=== PATIENT | female | born 1980 | race Caucasian/White ===

== ENCOUNTER 2017-04-14 00:50 | Inpatient (IN) | payer OTHER ==
[2017-04-14 01:35] LABS: BASOPHIL 0.9 % (0-2.0); MCH 28.2 pg (25.7-33.7); MCHC 33.8 g/dl (32.0-36.0); MEAN CELL VOLUME 83.5 fl (80-96); MEAN PLT VOLUME 9.3 fl (7.5-11.1); NEUTROPHILS 67.6 % (42.8-82.8); PLATELET COUNT 218 K/MM3 (134-434); RDW 14.4 % (11.6-15.6); WHITE BLOOD COUNT 6.4 K/mm3 (4.0-10.0)
[2017-04-14 01:41] VITALS: BMI 34.7
[2017-04-14 01:52] LABS: INR 0.93 (0.82-1.09); PROTHROMBIN TIME (PATIENT) 10.5 SEC (9.98-11.88)
[2017-04-14 02:00] LABS: ANION GAP 13 (8-16); CALCIUM 8.4 mg/dL (8.5-10.1); CO2 20 mmol/L (21-32); CREATININE 0.6 mg/dL (0.55-1.02); GLUCOSE,RANDOM 91 mg/dL (74-106)
[2017-04-14] MEDS ORDERED: IBUPROFEN 800 MG/8 ML IJ IVPB PRN (03:10)
[2017-04-14] MEDS ORDERED: ONDANSETRON 4 MG/2 ML VIAL IVPUSH PRN (03:11)
[2017-04-14] MEDS ORDERED: CITRIC ACID/SODIUM CITRATE 30 ML UNIT-DOSE CUP PO ONE ×2 (03:13)
[2017-04-14] MEDS ORDERED: ELECTROLYTE-148 SOLN 1,000 ML IV SCH (03:15)
--- NOTE | 2017-04-14 03:20 | HP ---
Past Medical History - Admission Chief Complaint: Rupture of membrane History of Present Illness: 36 yo @ 34 weeks gestation, EDC 05/21/17, with 2 previous C-Sections, admitted for rupture of membrane. Patient was then prepped and draped for repeat . History Source: Patient Limitations to Obtaining History: No Limitations - Past Medical History ...: 3 ...Para: 2 ...Term: 1 ...: 1 ...Spon : 0 ...Induced : 0 ...Multiple Gestation: 0 ...LMP: 08/18/16 ... Weeks Gestation by Dates: 34.1 ...EDC by Dates: 05/25/17 ...EDC by Sono: 05/21/17 - Past Surgical History Past Surgical History: Yes: Hx Myomectomy: No Hx Transabdominal Cerclage: No - Smoking History Smoking history: Never smoked Have you smoked in the past 12 months: No - Alcohol/Substance Use Hx Alcohol Use: No History of Substance Use: reports: None - Social History Usual Living Arrangement: Yes: With Spouse History of Recent Travel: No Home Medications - Allergies Allergies/Adverse Reactions: Allergies Allergy/AdvReac Type Severity Reaction Status Date / Time No Known Allergies Allergy Verified 04/14/17 01:21 - Home Medications Home Medications: Ambulatory Orders Vit/Iron Fumarate/FA [ Tablet] 1 tablet PO DAILY 04/14/17 Family Disease History - Family Disease History Family History: Unremarkable Review of Systems - Review of Systems Constitutional: reports: No Symptoms Eyes: reports: No Symptoms HENT: reports: No Symptoms Neck: reports: No Symptoms Cardiovascular: reports: No Symptoms Respiratory: reports: No Symptoms Gastrointestinal: reports: No Symptoms Genitourinary: reports: Other (Rupture of membrane) Breasts: reports: No Symptoms Reported Musculoskeletal: reports: No Symptoms Integumentary: reports: No Symptoms Neurological: reports: No Symptoms Endocrine: reports: No Symptoms Hematology/Lymphatic: reports: No Symptoms Psychiatric: reports: No Symptoms Pain Intensity: 3 Physical Exam - Maternity Vital Signs: Vital Signs Temperature 97.3 F L 04/14/17 00:50 Pulse Rate 75 04/14/17 00:50 Respiratory Rate 20 04/14/17 00:50 Blood Pressure 139/72 04/14/17 00:50 O2 Sat by Pulse Oximetry (%) Constitutional: Yes: Well Nourished HENT: Yes: Atraumatic Neck: Yes: Supple Cardiovascular: Yes: Regular Rate and Rhythm Lungs: Clear to auscultation Breast(s): Yes: WNL - Abdominal Exam/OB Number of Fetuses: Single Presentation: Breech Contractions: No Intensity: Mild - Vaginal Exam/OB Amniotic Membrane Status: Ruptured Amniotic Fluid: Yes: Clear Presentation: Calderon Breech - Physical Exam Musculoskeletal: Yes: WNL Extremities: Yes: WNL ...Motor Strength: WNL Psychiatric: Yes: Alert, Oriented - Labs Lab Results: CBC, BMP 04/14/17 01:25 04/14/17 01:25 Problem List - Problems (1) premature rupture of membranes (PPROM) delivered, current hospitalization Code(s): O42.919 - PRETRM DIA ROM, UNSP TIME BETW RUPT AND ONST LABR, UNSP TRI (2) Previous section complicating , antepartum condition or complication Code(s): O34.219 - MATERNAL CARE FOR UNSP TYPE SCAR FROM PREVIOUS DEL Assessment/Plan IUP @ 34 weeks PPROM Previous Pre op for repeat Consent signed Anesthesia to see patient
[2017-04-14] MEDS ORDERED: METHYLERGONOVINE MALEATE 0.2 MG/1 ML AMP IM PRN (03:25)
--- NOTE | 2017-04-14 03:25 | OP ---
Operative Note - Note: Operative Date: 04/14/17 Pre-Operative Diagnosis: Premature rupture of membrane/ Previous C- Section Operation: Repeat Low Transverse Findings: Baby boy in Calderon breech position Post-Operative Diagnosis: Same as Pre-op Surgeon: Lorrie Diallo Senior Medical Transcriptionist: Sarmad Urias Specimens Removed: Placenta Estimated Blood Loss (mls): 600 Operative Report Dictated: Yes
[2017-04-14] MEDS ORDERED: OXYTOCIN 20 UNITS in 0.9% NS 1,000 ML IV SCH (03:30)
[2017-04-14 03:36] LABS: HIV 1 & 2 AB NEGATIVE; HIV 1 AGp24 NEGATIVE
[2017-04-14 03:41] LABS: ARTERIAL BLD GAS O2 SATURATION 44.7 % (90-98.9); ARTERIAL BLOOD GAS HCO3 23.3 meq/L (22-26); ARTERIAL BLOOD GAS pH 7.35 (7.35-7.45)
[2017-04-14 03:45] LABS: PT. ON O2? NO
[2017-04-14 03:47] LABS: ARTERIAL BLOOD GAS PO2 22.8 mmHg (80-100)
[2017-04-14 03:48] LABS: VENOUS BLOOD GAS HCO3 23.5 meq/L (19-25); VENOUS PH 7.34 (7.32-7.42)
[2017-04-14] MEDS: PRENATAL VITAMINS W/ FOLIC ACID TABLET (FP) PO SCH (12:27)
[2017-04-14] MEDS: FERROUS SO4 325 MG TABLET (FP) PO SCH ×2 (12:27→21:28)
[2017-04-15] MEDS ORDERED: BISACODYL 10 MG SUPP.RECT RC PRN (03:25)
--- NOTE | 2017-04-15 08:14 | PN ---
Post Progress Note Post Day: 1 Type of Delivery: Repeat C/S Vital Signs: Vital Signs Temperature 98 F 04/15/17 02:00 Pulse Rate 86 04/15/17 02:00 Respiratory Rate 18 04/15/17 02:00 Blood Pressure 121/78 04/15/17 02:00 O2 Sat by Pulse Oximetry (%) 99 04/14/17 04:15 Breast Exam: Yes: Soft Uterus: Yes: Fundus Firm Incision: Yes: Dressing dry and intact Abdomen/GI: Yes: Abdomen soft Lochia: Yes: Rubra Lochia, amount: Small Extremities: Yes: Calves non-tender Perineum: Yes: Intact Activity: Ambulating - Labs Labs: CBC WBC 6.4 K/mm3 (4.0-10.0) 04/14/17 01:25 RBC 4.09 M/mm3 (3.60-5.2) 04/14/17 01:25 Hgb 11.5 GM/dL (10.7-15.3) 04/14/17 01:25 Hct 34.2 % (32.4-45.2) 04/14/17 01:25 MCV 83.5 fl (80-96) 04/14/17 01:25 MCH 28.2 pg (25.7-33.7) 04/14/17 01:25 MCHC 33.8 g/dl (32.0-36.0) 04/14/17 01:25 RDW 14.4 % (11.6-15.6) 04/14/17 01:25 Plt Count 218 K/MM3 (134-434) 04/14/17 01:25 MPV 9.3 fl (7.5-11.1) 04/14/17 01:25 Neutrophils % 67.6 % (42.8-82.8) 04/14/17 01:25 Lymphocytes % 23.5 % (8-40) 04/14/17 01:25 Monocytes % 7.0 % (3.8-10.2) 04/14/17 01:25 Eosinophils % 1.0 % (0-4.5) 04/14/17 01:25 Basophils % 0.9 % (0-2.0) 04/14/17 01:25 Assessment/Plan check cbc reg diet oob
[2017-04-15 08:21] LABS: BASOPHIL 0.2 % (0-2.0); EOSINOPHIL 1.5 % (0-4.5); MCHC 33.6 g/dl (32.0-36.0); MEAN CELL VOLUME 83.3 fl (80-96); MEAN PLT VOLUME 8.4 fl (7.5-11.1); NEUTROPHILS 84.5 % (42.8-82.8); PLATELET COUNT 197 K/MM3 (134-434); RDW 14.6 % (11.6-15.6); WHITE BLOOD COUNT 9.7 K/mm3 (4.0-10.0)
[2017-04-15] MEDS: SIMETHICONE 80 MG TAB.CHEW (FP) PO PRN ×2 (09:02→20:16)
[2017-04-15] MEDS: IBUPROFEN 600 MG TABLET (FP) PO PRN ×2 (09:02→20:18)
[2017-04-15] MEDS: oxyCODONE HCL 5 MG TABLET PO PRN ×2 (09:03→20:16)
[2017-04-15] MEDS ORDERED: DIPHTH,PERTUSS(ACELL),TET 0.5 ML DISP.SYRIN IM ONE (10:00)
[2017-04-15] MEDS: PRENATAL VITAMINS W/ FOLIC ACID TABLET (FP) PO SCH (10:29)
[2017-04-15] MEDS: FERROUS SO4 325 MG TABLET (FP) PO SCH ×2 (10:29→22:48)
--- NOTE | 2017-04-15 15:20 | PN ---
Progress Note, Physician Chief Complaint: s/p c section under spinal anesthesia History of Present Illness: post op day one with duramorph for post op pain control - Current Medication List Current Medications: Active Medications Bisacodyl (Dulcolax Suppository -) 10 mg RC PRN PRN PRN Reason: CONSTIPATION Diphenhydramine HCl (Benadryl Injection -) 25 mg IVPUSH Q4H PRN PRN Reason: itching Ferrous Sulfate (Feosol -) 325 mg PO BID [facility] Last Admin: 04/15/17 10:29 Dose: 325 mg Parenteral Electrolytes (Plasma-Lyte 148 -) 1,000 mls @ 125 mls/hr IV ASDIR BATSHEVA Oxytocin/Sodium Chloride (Normal Saline+20 Units Oxytocin -) 1,000 mls @ 125 mls/hr IV ASDIR BATSHEVA Ibuprofen (Motrin -) 600 mg PO Q4H PRN PRN Reason: PAIN Last Admin: 04/15/17 09:02 Dose: 600 mg Methylergonovine Maleate (Methergine Injection -) 0.2 mg IM Q4H PRN PRN Reason: Excessive Bleeding (L&D) Last Admin: 04/14/17 11:15 Dose: 0.2 mg Oxycodone HCl (Roxicodone -) 5 mg PO Q4H PRN PRN Reason: PAIN LEVEL 1-5 Last Admin: 04/15/17 09:03 Dose: 5 mg Multivit/Folic Acid/Iron ( Vitamins (Sjr) -) 1 tab PO DAILY BATSHEVA Last Admin: 04/15/17 10:29 Dose: 1 tab Simethicone (Mylicon -) 80 mg PO Q4H PRN PRN Reason: GAS Last Admin: 04/15/17 09:02 Dose: 80 mg - Objective Vital Signs: Vital Signs Temperature 98 F 04/15/17 13:09 Pulse Rate 94 H 04/15/17 13:09 Respiratory Rate 22 04/15/17 13:09 Blood Pressure 134/74 04/15/17 13:09 O2 Sat by Pulse Oximetry (%) 99 04/14/17 04:15 Constitutional: Yes: Well Nourished Cardiovascular: Yes: WNL Respiratory: Yes: WNL Gastrointestinal: Yes: WNL Neurological: Yes: WNL Labs: CBC, BMP 04/15/17 07:45 04/14/17 01:25 INR, PTT INR 0.93 (0.82-1.09) 04/14/17 01:25 Assessment/Plan No adverse effect from anesthetic, no headache, pain controlled. Dept of anesthesiology will sign off care at this time
[2017-04-16] MEDS: IBUPROFEN 600 MG TABLET (FP) PO PRN ×3 (04:54→18:24)
[2017-04-16] MEDS: SIMETHICONE 80 MG TAB.CHEW (FP) PO PRN ×3 (04:54→18:25)
[2017-04-16] MEDS: oxyCODONE HCL 5 MG TABLET PO PRN ×3 (04:55→18:23)
[2017-04-16] MEDS: FERROUS SO4 325 MG TABLET (FP) PO SCH ×2 (09:26→21:30)
[2017-04-16] MEDS: PRENATAL VITAMINS W/ FOLIC ACID TABLET (FP) PO SCH (09:26)
--- NOTE | 2017-04-16 13:42 | PATH ---
Surgical Pathology Report Patient Name: DAVID CLEMONS Med. Rec. #: [id number] /Age/Gender: 1980 (Age: 36) / F Account: [id number] Location: [facility] OBS/MINK SLICER Taken: 04/14/2017 Received: 04/14/2017 Reported: 04/16/2017 Physicians: Lorrie Diallo M.D. Specimen(s) Received PLACENTA Clinical History 36-year-old female, 34.5 weeks with premature rupture of membranes 2 previous C-sections Final Diagnosis PLACENTA, DELIVERY: FOCALLY DISRUPTED THIRD TRIMESTER PLACENTA WITH THREE VESSEL UMBILICAL CORD AND UNREMARKABLE PLACENTAL MEMBRANES. Electronically Signed Slade Lu M.D. Gross Description The specimen is received fresh labeled placenta and is a 440 gram, 16.0 x 15.0 x 3.0 cm. placenta with attached membranes and umbilical cord. The attached membranes are rivera, translucent with focal opacities and insert marginally. The umbilical cord measures 17 cm. in length and averages 1.2 cm. in diameter. The cord inserts eccentrically, 3 cm. to the nearest margin. No true knots or strictures are identified. Cut surface of the umbilical cord reveals 3 vessels. The surface is yadav-blue with minimal fibrin deposition and appropriate caliber vessels. The maternal surface is red-brown with focal defects. Sectioning reveals red-brown, spongy parenchyma. No lesions are identified. Video Photographer sections are submitted in three cassettes as follows: 1- membrane rolls and umbilical cord; 2-3- full thickness sections of placenta. 04/15/2017 saudi04/15/2017
--- NOTE | 2017-04-16 17:11 | PN ---
Progress Note (short form) - Note Progress Note: pod 2 s/p c/s doing well, no c/o CBC, BMP 04/15/17 07:45 04/14/17 01:25 Last Vital Signs Temp Pulse Resp BP Pulse Ox 98.8 F 72 20 122/71 99 04/16/17 07:40 04/16/17 07:40 04/16/17 07:40 04/16/17 07:40 04/14/17 04:15 abdomen soft, no distension, no cav incision dry, clean no calf tenderness plan ambulate , cbc in am
[2017-04-17] MEDS: oxyCODONE HCL 5 MG TABLET PO PRN (02:22)
[2017-04-17] MEDS: SIMETHICONE 80 MG TAB.CHEW (FP) PO PRN ×4 (02:22→22:16)
[2017-04-17] MEDS: IBUPROFEN 600 MG TABLET (FP) PO PRN ×4 (02:22→22:16)
[2017-04-17 08:27] LABS: BASOPHIL 0.1 % (0-2.0); EOSINOPHIL 4.6 % (0-4.5); MCH 28.5 pg (25.7-33.7); MCHC 33.7 g/dl (32.0-36.0); MEAN CELL VOLUME 84.3 fl (80-96); MEAN PLT VOLUME 8.7 fl (7.5-11.1); NEUTROPHILS 77.6 % (42.8-82.8); PLATELET COUNT 220 K/MM3 (134-434); RDW 14.9 % (11.6-15.6)
--- NOTE | 2017-04-17 08:38 | PN ---
Progress Note (short form) - Note Progress Note: pod 3 s/p c/s doing well CBC, BMP 04/17/17 07:00 04/14/17 01:25 Last Vital Signs Temp Pulse Resp BP Pulse Ox 98.9 F 72 18 113/71 99 04/17/17 08:03 04/17/17 08:03 04/17/17 08:03 04/17/17 08:03 04/14/17 04:15 abdomen soft, incision dry, clean no calf tenderness plan ambualte , pain management, d/c home in am
[2017-04-17] MEDS: FERROUS SO4 325 MG TABLET (FP) PO SCH ×2 (09:27→22:16)
[2017-04-17] MEDS: PRENATAL VITAMINS W/ FOLIC ACID TABLET (FP) PO SCH (09:27)
--- NOTE | 2017-04-18 09:16 | DS ---
Physical Exam-YARD COORDINATOR Vital Signs: Vital Signs Temperature 98.7 F 04/18/17 06:55 Pulse Rate 76 04/18/17 06:55 Respiratory Rate 20 04/18/17 06:55 Blood Pressure 126/76 04/18/17 06:55 O2 Sat by Pulse Oximetry (%) 99 04/14/17 04:15 Constitutional: Yes: Well Nourished, No Distress, Calm Eyes: Yes: WNL, Conjunctiva Clear, EOM Intact HENT: Yes: WNL, Atraumatic, Normocephalic Neck: Yes: WNL, Supple, Trachea Midline Cardiovascular: Yes: WNL, Regular Rate and Rhythm Respiratory: Yes: WNL, Regular, CTA Bilaterally Gastrointestinal: Yes: WNL ...Rectal Exam: Yes: WNL Renal/: Yes: WNL ....Post : Yes: Uterus firm, Uterus non-tender, Slight lochia rubra Breast(s): Yes: WNL Musculoskeletal: Yes: WNL Extremities: Yes: WNL Edema: No Integumentary: Yes: WNL Wound/Incision: Yes: Clean/Dry, Well Approximated, [place] Intact Neurological: Yes: WNL, Alert, Oriented ...Motor Strength: WNL Psychiatric: Yes: WNL, Alert, Oriented Labs: CBC, BMP 04/17/17 07:00 04/14/17 01:25 Delivery - Delivery Section: Repeat, Low Flap Transverse Type of Anesthesia: Spinal Episiotomy/Laceration: None EBL (cc): 500 Delivery, Single - Stages of Labor Date 1st Stage Initiatied: 04/14/17 Time 1st Stage Initiated: 00:30 Date of Delivery: 04/14/17 Time of Delivery: 02:38 Time Placenta Delivered: 02:39 Placenta: Yes: Expressed - Condition of Infant Ager Operator/Crib Clerk Present: Yes Name: Neena Camacho Infant Gender: Male Weight: 6 lb 10 oz Total Hours ROM (Hrs/Mins): 2 HOURS/8 MINUTES - 1 Minute Total Score: 8 5 Minutes Total Score: 9 - Feeding Plan Initial Plan: Elected not to breastfeed exclusively throughout hospitalization Discharge Summary Reason For Visit: ADMIT Current Active Problems premature rupture of membranes (PPROM) delivered, current hospitalization (Acute) Previous section complicating , antepartum condition or complication (Acute) Procedures: Principal: repeat LST c/s - Instructions Referrals: [facility] ([facility] [Outside] - Home Medications Comprehensive Discharge Medication List: Ambulatory Orders Vit/Iron Fumarate/FA [ Tablet] 1 tablet PO DAILY 04/14/17 Ibuprofen [Motrin -] 600 mg PO QID #28 tablet 04/18/17
[2017-04-18 09:49] VITALS: BP 127/75; PULSE 82; TEMP 98.8
[2017-04-18] MEDS: FERROUS SO4 325 MG TABLET (FP) PO SCH (10:00)
[2017-04-18] MEDS: PRENATAL VITAMINS W/ FOLIC ACID TABLET (FP) PO SCH (10:00)
[2017-04-18] MEDS: IBUPROFEN 600 MG TABLET (FP) PO PRN (11:09)
== END 2017-04-18 11:51 | disposition home or self-care (01) | DRG 540 ==
LOC: JLDR 00:50 → J3W 05:30
PROVIDERS: ADMIT Obstetrics & Gynecology; ATTEND Obstetrics & Gynecology
PROC: 10D00Z1 Extraction of Products of Conception, Low, Open Approach (ICD-10-PCS; principal; 2017-04-14)
DX: O42.913 Preterm premature rupture of membranes, unspecified as to length of time between rupture and onset of labor, third trimester (principal); O34.211 Maternal care for low transverse scar from previous cesarean delivery; Z3A.34 34 weeks gestation of pregnancy; N85.8 Other specified noninflammatory disorders of uterus; Z37.0 Single live birth
CPT/HCPCS: 36415; 36600; 80048; 82803; 85025; 85610; 85730; 86593; 86850; 86900; 86901; 87389; 88307-TC; 90715

== ENCOUNTER 2020-03-02 16:17 | Emergency (ER) | payer OTHER ==
[2020-03-02 16:46] VITALS: BP 132/91; PULSE 82; TEMP 98.3; BMI 30.2
--- NOTE | 2020-03-02 17:39 | PDOC ---
History of Present Illness - General Chief Complaint: Laceration Stated Complaint: LACERATION TO RIGHT HAND Time Seen by Provider: 03/02/20 16:46 History Source: Patient - History of Present Illness Timing/Duration: reports: this afternoon Location: reports: hands Past History - Medical History Allergies/Adverse Reactions: Allergies Allergy/AdvReac Type Severity Reaction Status Date / Time No Known Allergies Allergy Verified 04/14/17 01:21 Home Medications: Ambulatory Orders Vit/Iron Fum/Folic AC [ Tablet] 1 tablet PO DAILY 04/14/17 Ibuprofen [Motrin -] 600 mg PO QID #28 tablet 04/18/17 Asthma: No Cancer: No Cardiac Disorders: No COPD: No Diabetes: No HTN: No Seizures: No Thyroid Disease: No - Reproductive History Is Patient Now?: No - Immunization History Immunization Up to Date: No - Psycho-Social/Smoking History Smoking History: Never smoked Have you smoked in the past 12 months: No - Substance Abuse Hx (Audit-C & DAST Scrn) How often the patient has a drink containing alcohol: Never Score: In Men: 4 or > Positive; In Women: 3 or > Positive: 0 Screen Result (Pos requires Nsg. Audit-10AR): Negative In the last yr the pt used illegal drug/Rx for NonMed reason: No Score: Yes response is considered Positive: 0 Screen Result (Positive result requires Nsg. DAST-10): Negative Review of Systems - Review of Systems Neurological: No: Numbness *Physical Exam - Vital Signs Last Vital Signs Temp Pulse Resp BP Pulse Ox 98.3 F 82 20 132/91 100 03/02/20 16:36 03/02/20 16:36 03/02/20 16:36 03/02/20 16:36 03/02/20 16:36 - Physical Exam General Appearance: Yes: Appropriately Dressed, Mild Distress HEENT: positive: Normal Voice Neck: positive: Supple Respiratory/Chest: negative: Respiratory Distress Integumentary: positive: Dry, Warm, Other (~1.5 cm curvilinear, superficial lac to dorsum of proximal phalanx of R thunb, no gross tendon, FROMI, sensation intact) Neurologic: positive: Fully Oriented, Alert, Normal Mood/Affect Procedures - Laceration/Wound Repair Right Finger Wound Length: to 2.5 cm Wound Explored: clean Wound's Depth, Shape: superficial Anesthesia: 1% Lidocaine Amount of Anesthetic (ccs): 7 Wound Repaired With: Sutures Suture Size/Type: 4:0, nylon Number of Sutures: 12 Sterile Dressing Applied: Yes Medical Decision Making - Medical Decision Making 03/02/20 17:40 39 yo F, p/w lac to R thumb while handling broken dishes today. Tetanus UTD see exam Lac repair to thumb No e/o tendon injury Tetanus UTD Lac repair Wound check as needed in 2 days Discharge - Discharge Information Problems reviewed: Yes Clinical Impression/Diagnosis: Laceration of thumb Qualifiers: Encounter type: initial encounter Damage to nail status: without damage Foreign body presence: without foreign body Laterality: right Qualified Code(s): S61.011A - Laceration without foreign body of right thumb without damage to nail, initial encounter Condition: Good Disposition: HOME - Follow up/Referral - Patient Discharge Instructions Patient Printed Discharge Instructions: DI for Laceration Repair Additional Instructions: Mantenga el apsito en amado lugar juliana al menos 24 horas, despus de lo cual se puede abrir al aire. Puede limpiar suavemente la herida con agua y jabn suave despus de 24 horas para evitar la formacin de costras sobre los nudos de sutura. Renzobin puede aplicar drea pomada antibitica dos veces al da hasta que se retiren las suturas. Regreso por enrojecimiento, secrecin o fiebre Las suturas se retiran en 7 gold. Print Language: JAPANESE - Post Discharge Activity
== END 2020-03-02 17:58 | disposition home or self-care (01) ==
LOC: JER 16:17 → JERFT 16:17
PROC: 0HQFXZZ Repair Right Hand Skin, External Approach (ICD-10-PCS; principal; 2020-03-02)
DX: S61.011A Laceration without foreign body of right thumb without damage to nail, initial encounter (principal)
CPT/HCPCS: 99282-25

== ENCOUNTER 2020-03-09 17:24 | Emergency (ER) | payer OTHER ==
[2020-03-09 17:41] VITALS: BP 130/84; PULSE 71; TEMP 97.9; BMI 30.6
--- NOTE | 2020-03-09 18:34 | PDOC ---
Suture Removal/Wound Check HPI - History of Present Illness Chief Complaint: Suture/Staple Removal(Here) Stated Complaint: SUTURE REMOVAL Time Seen by Provider: 03/09/20 17:51 History Source: Yes: Patient Treated at: [facility] Date of Last ED visit: 03/02/20 - Previous ED Treatment Type of procedure performed on last visit: Yes: Laceration Repair Tetanus Immunization: Yes: Up to Date Past History - Medical History Allergies/Adverse Reactions: Allergies Allergy/AdvReac Type Severity Reaction Status Date / Time No Known Allergies Allergy Verified 03/09/20 17:36 Home Medications: Ambulatory Orders Vit/Iron Fum/Folic AC [ Tablet] 1 tablet PO DAILY 04/14/17 Ibuprofen [Motrin -] 600 mg PO QID #28 tablet 04/18/17 Asthma: No Cancer: No Cardiac Disorders: No COPD: No Diabetes: No HTN: No Seizures: No Thyroid Disease: No - Reproductive History Is Patient Now?: No - Immunization History Immunization Up to Date: No - Psycho-Social/Smoking History Smoking History: Never smoked Have you smoked in the past 12 months: No Information on smoking cessation initiated: Yes - Substance Abuse Hx (Audit-C & DAST Scrn) How often the patient has a drink containing alcohol: Never Score: In Men: 4 or > Positive; In Women: 3 or > Positive: 0 Screen Result (Pos requires Nsg. Audit-10AR): Negative In the last yr the pt used illegal drug/Rx for NonMed reason: No Score: Yes response is considered Positive: 0 Screen Result (Positive result requires Nsg. DAST-10): Negative *Review of Systems - Review of Systems Constitutional: No: Chills, Fever Integumentary: No: Bruising *Physical Exam - Vital Signs Last Vital Signs Temp Pulse Resp BP Pulse Ox 97.9 F 71 19 130/84 100 03/09/20 17:34 03/09/20 17:34 03/09/20 17:34 03/09/20 17:34 03/09/20 17:34 - Physical Exam General Appearance: Yes: Appropriately Dressed. No: Apparent Distress HEENT: positive: Normal Voice Neck: positive: Supple Respiratory/Chest: negative: Respiratory Distress Integumentary: positive: Dry, Warm, Other (well healed lac to dorsum of proximal R thumb w/ sutures intact) Neurologic: positive: Fully Oriented, Alert, Normal Mood/Affect Medical Decision Making - Medical Decision Making 03/09/20 18:38 39-year-old female no significant history here for suture removal to right thumb. No pain swelling or redness. Patient well-appearing and stable with well-healing lack to dorsum of proximal right thumb. 12 sutures removed without any complications Discharge - Discharge Information Problems reviewed: Yes Clinical Impression/Diagnosis: Visit for suture removal Condition: Good Disposition: HOME - Follow up/Referral - Patient Discharge Instructions Patient Printed Discharge Instructions: DI for Suture Removal - Post Discharge Activity
== END 2020-03-09 18:30 | disposition home or self-care (01) ==
LOC: JERFT 17:24
DX: Z48.02 Encounter for removal of sutures (principal)
CPT/HCPCS: 99281-25

== ENCOUNTER 2020-04-06 15:50 | Emergency (ER) | payer OTHER ==
[2020-04-06 15:58] VITALS: BP 133/79; PULSE 77; TEMP 98.3; BMI 30.2
--- NOTE | 2020-04-06 16:14 | PDOC ---
History of Present Illness - General Chief Complaint: Pain Stated Complaint: FINGER PAIN/WOUND Time Seen by Provider: 04/06/20 16:01 History Source: Patient, Old Records Exam Limitations: No Limitations - History of Present Illness Initial Comments: 04/06/20 16:15 HISTORY OF PRESENT ILLNESS: 39-year-old woman presents emergency department for evaluation of growth to her right thumb where previous sutures were in February of this year. Patient denies any pain or decrease in range of motion. She denies any fevers, chills, redness or drainage from the lesion. No recent travel or sick contacts. PAST MEDICAL HISTORY: Denies past medical history SURGICAL HISTORY: Denies ALLERGIES: No known drug allergies REVIEW OF SYSTEMS General/Constitutional: Denies fever or chills. Denies weakness, weight change. HEENT: Denies change in vision. Denies ear pain or discharge. Denies sore throat. Cardiovascular: Denies chest pain or shortness of breath. Respiratory: Denies cough, wheezing, or hemoptysis. Gastrointestinal: Denies nausea, vomiting, diarrhea or constipation. Denies rectal bleeding. Genitourinary: Denies dysuria, frequency, or change in urination. Musculoskeletal: Denies joint or muscle swelling or pain. Denies neck or back pain. Skin and breasts: See HPI Neurologic: Denies headache, vertigo, loss of consciousness, or loss of sensation. Psychiatric: Denies depression or anxiety. Endocrine: Denies increased thirst. Denies abnormal weight change. Hematologic/Lymphatic: Denies anemia, easy bleeding, or history of blood clots. Allergic/Immunologic: Denies hives or skin allergy. Denies latex allergy. PHYSICAL EXAM General Appearance: Well-appearing, appropriately dressed. No apparent distress, no intoxication. Musculoskeletal/Extremities: Normal inspection. FROM of all extremities, normal capillary refill. Pelvis Stable. No CVA tenderness. No tenderness to extremities, pedal edema, swelling, erythema or deformity. Integumentary: Keloid scarring present to suture line over dorsum of proximal phalanx of right thumb. 04/06/20 16:17 Past History - Medical History Allergies/Adverse Reactions: Allergies Allergy/AdvReac Type Severity Reaction Status Date / Time No Known Allergies Allergy Verified 04/06/20 15:53 Home Medications: Ambulatory Orders Vit/Iron Fum/Folic AC [ Tablet] 1 tablet PO DAILY 04/14/17 Ibuprofen [Motrin -] 600 mg PO QID #28 tablet 04/18/17 Asthma: No Cancer: No Cardiac Disorders: No COPD: No Diabetes: No HTN: No Seizures: No Thyroid Disease: No - Reproductive History Is Patient Now?: No - Immunization History Immunization Up to Date: No - Psycho-Social/Smoking History Smoking History: Never smoked Have you smoked in the past 12 months: No - Substance Abuse Hx (Audit-C & DAST Scrn) How often the patient has a drink containing alcohol: Never Score: In Men: 4 or > Positive; In Women: 3 or > Positive: 0 Screen Result (Pos requires Nsg. Audit-10AR): Negative In the last yr the pt used illegal drug/Rx for NonMed reason: No Score: Yes response is considered Positive: 0 Screen Result (Positive result requires Nsg. DAST-10): Negative *Physical Exam - Vital Signs Last Vital Signs Temp Pulse Resp BP Pulse Ox 98.3 F 77 16 133/79 100 04/06/20 15:54 04/06/20 15:54 04/06/20 15:54 04/06/20 15:54 04/06/20 15:54 Medical Decision Making - Medical Decision Making 04/06/20 16:14 A/P: 39-year-old woman with keloid scar to previous suture line No evidence of infection present. No subcutaneous emphysema present upon palpation Discharge home with hand specialist follow-up as needed I discussed the physical exam findings, ancillary test results and final diagnoses with the patient. I answered all of the patient's questions. The patient was satisfied with the care received and felt comfortable with the discharge plan and treatment plan. The patient will call their primary care physician within 24 hours to arrange follow-up and will return to the Emergency Department with any new, persistent or worsening symptoms. Portions of this note have been documented using voice recognition software. As a result, errors may occur in the tobacco roller process. Effort has been made to correct all grammatical and tobacco roller error, but some may have been missed which may produce sporadic inaccurate tobacco roller or nonsensical phrases. Discharge - Discharge Information Problems reviewed: Yes Clinical Impression/Diagnosis: Keloid scar of skin Condition: Stable Disposition: HOME - Admission No - Follow up/Referral Referrals: Skip Larsen MD [Staff Physician] - Luigi Garcia MD [Staff Physician] - - Patient Discharge Instructions Additional Instructions: You have been given the name of the hand specialist. You may call to follow-up for reevaluation of the scar. This is mostly cosmetic and there should be no functional problem as a result of this and specialty evaluation is not required for treatment. Return to the emergency department for any new or worsening symptoms. Thank you very much for choosing us to provide your emergent healthcare needs. Se le montague dado el nombre del especialista en bryn. Puede llamar para un seguimiento para la reevaluacin de la cicatriz. [place] es principalmente cosmtico y no debera zander ningn problema funcional jamie resultado de esto y no se requiere drea evaluacin especializada para el tratamiento. Regrese al departamento de emergencias por cualquier sntoma nuevo o que empeore. Muchas jenn por elegirnos para satisfacer don necesidades de atencin mdica emergentes. - Post Discharge Activity
--- OUTSIDE RECORDS SUMMARY | 2020-04-06 16:20 | XMS ---
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, [place] [facility] Re-disclosure Warning The records that you are about to access may contain information from federally- assisted alcohol or drug abuse programs. If such information is present, then the following federally mandated warning applies: This information has been disclosed to you from records protected by federal confidentiality rules (42 CFR part 2). The federal rules prohibit you from making any further disclosure of this information unless further disclosure is expressly permitted by the written consent of the person to whom it pertains or as otherwise permitted by 42 CFR part 2. A general authorization for the release of medical or other information is NOT sufficient for this purpose. The Federal rules restrict any use of the information to criminally investigate or prosecute any alcohol or drug abuse patient.The records that you are about to access may contain highly sensitive health information, the redisclosure of which is protected by Article 27-F of the [facility] Public Health law. If you continue you may haveaccess to information: Regarding HIV / AIDS; Provided by facilities licensed or operated by the [facility] Office of Mental Health; or Provided by the [facility] Office for People With Developmental Disabilities. If such information is present, then the following [facility] mandated warning applies: This information has been disclosed to you from confidential records which are protected by state law. State law prohibits you from making any further disclosure of this information without the specific written consent of the person to whom it pertains, or as otherwise permitted by law. Any unauthorized further disclosure in violation of state law may result in a fine or group home sentence or both. A general authorization for the release of medical or other information is NOT sufficient authorization for further disclosure. Insurance Providers Payer name Policy type Policy ID Covered Covered constitution party's Policy P teresa / Coverage constitution party ID relationship to [facility] [employer] ormation type [place] MED[place]ID [id number] SP [id number] Social History Code Duration Value Status Description Data Source(s ) Smoking 09/08/2019 12:00:00 Never Smoker completed Never Smoker e CW3 ([facility])
== END 2020-04-06 16:25 | disposition home or self-care (01) ==
LOC: JERFT 15:50
DX: L91.0 Hypertrophic scar (principal)
CPT/HCPCS: 99282-25